=== PATIENT | female | born 1960 | race Caucasian/White ===

== ENCOUNTER 2018-11-20 05:34 | Day surgery (SDC) | payer OTHER ==
[~2018-11-20] VITALS: Ht 172.7 cm; Wt 60.2 kg
[~2018-11-20 05:34] MED LIST: HYDR-3245 PO; METH750T2 PO; ZOLP-413 PO
[2018-11-20] MEDS ORDERED: LACTATED RINGERS 1,000 ML IV SCH (06:44)
[2018-11-20] MEDS ORDERED: CALCIUM PO (06:49)
[2018-11-20] MEDS ORDERED: ACYC-114 PO (06:49)
[2018-11-20 06:53] VITALS: BP 127/81
[2018-11-20] MEDS ORDERED: FENTANYL PF 100 MCG/2ML ONE ×2 (07:03→09:35)
[2018-11-20] MEDS ORDERED: MIDAZOLAM 1 MG/ML, 2ML ONE (07:03)
[2018-11-20] MEDS ORDERED: BUPIVACAINE/PF-EPI 0.5% 1:200K ONE (07:08)
[2018-11-20] MEDS ORDERED: ONDANSETRON ODT 8 MG ONE (07:15)
[2018-11-20] MEDS ORDERED: ACETAMINOPHEN 500 MG TABLET ONE (07:15)
[2018-11-20] MEDS ORDERED: ONDANSETRON ODT 8 MG PO ONE (07:30)
[2018-11-20] MEDS ORDERED: ACETAMINOPHEN 500 MG TABLET PO ONE (07:30)
[2018-11-20] MEDS ORDERED: LABETALOL 5MG/ML, 20ML IV PRN (08:00)
[2018-11-20] MEDS ORDERED: MEPERIDINE/PF 25MG/0.5ML IVPush PRN (08:00)
[2018-11-20] MEDS ORDERED: LORazepam 2 MG/ML, 1ML IVPush PRN (08:00)
[2018-11-20] MEDS ORDERED: OXYcodone 5 MG/5 ML ORAL.SOL UDC PO PRN (08:00)
[2018-11-20] MEDS ORDERED: hydrALAzine 20 MG/ML, 1ML IV PRN (08:00)
[2018-11-20] MEDS ORDERED: METOCLOPRAMIDE 5 MG/ML, 2ML IV PRN (08:00)
[2018-11-20] MEDS ORDERED: ROCURONIUM 10MG/ML,5ML ONE (08:36)
[2018-11-20] MEDS ORDERED: CEFAZOLIN 1,000 MG ONE (08:36)
[2018-11-20] MEDS ORDERED: PROPOFOL 10 MG/ML, 20ML ONE (08:36)
[2018-11-20] MEDS ORDERED: DEXAMETHASONE 4 MG/ML, 1ML ONE (08:36)
[2018-11-20] MEDS ORDERED: LIDOCAINE 2% 100MG/5ML SYRINGE ONE (08:36)
[2018-11-20] MEDS ORDERED: METOCLOPRAMIDE 5 MG/ML, 2ML ONE (08:36)
[2018-11-20] MEDS ORDERED: SUGAMMADEX 200 MG/2 ML IVPush ONE (09:11)
[2018-11-20] MEDS ORDERED: OXYcodone 5 MG/5 ML ORAL.SOL UDC ONE (09:35)
[2018-11-20] MEDS: FENTANYL PF 100 MCG/2ML IV PRN ×2 (09:37→09:47)
[2018-11-20] MEDS ORDERED: OMNIPAQUE 180 MG/ML, 20ML VIAL ONE (09:40)
[2018-11-20] MEDS ORDERED: HYDROmorphone 1 MG/ML, 1ML ONE (09:55)
[2018-11-20] MEDS: HYDROmorphone 2 MG/ML, 1ML IVPush PRN ×2 (09:57→10:07)
== END 2018-11-20 14:30 | disposition home or self-care (01) ==
LOC: OUT 05:34
PROVIDERS: ATTEND Orthopaedic Surgery Orthopaedic Surgery of the Spine
DX: M80.08XA Age-related osteoporosis with current pathological fracture, vertebra(e), initial encounter for fracture (principal); M25.552 Pain in left hip; Z88.8 Allergy status to other drugs, medicaments and biological substances
CPT/HCPCS: 22514; 72100; 88307; 88311; C1713; J0690; J1100; J1170; J2250; J2704; J2765; J3010; J7120; Q0162; Q9965